=== PATIENT | male | born 1990 | race Asian ===

== ENCOUNTER 2020-08-08 06:08 | Emergency (ER) | payer OTHER ==
[~2020-08-08] VITALS: Ht 182.9 cm; Wt 99.8 kg
[2020-08-08 06:48] LABS: URINE BILIRUBIN NEGATIVE (Negative); URINE BLOOD 3+ (Negative); URINE CLARITY CLEAR; URINE COLOR YELLOW; URINE GLUCOSE-RANDOM TRACE (Negative); URINE KETONES NEGATIVE (Negative); URINE LEUKOCYTES-REFLEX 1+ (Negative); URINE PROTEIN 2+ (Negative); URINE SPECIFIC GRAVITY 1.025 (1.005-1.030)
[2020-08-08 06:50] LABS: URINE NITRITE-REFLEX POSITIVE (Negative)
[2020-08-08] MEDS ORDERED: PYRIDIUM200 MG PO (06:57)
[2020-08-08] MEDS ORDERED: CIPROFLOXACIN500 M1 PO (06:57)
[2020-08-08 07:03] LABS: CASTS None Seen /LPF (None Seen); CRYSTALS None Seen /LPF (None Seen); MUCUS 0-3 Light strn/LPF (None Seen); SQUAMOUS 0-3 Few /LPF (0-3)
[2020-08-08 07:43] VITALS: BP 153/79
== END 2020-08-08 07:45 | disposition home or self-care (01) ==
LOC: M.ERS 06:08
PROVIDERS: Personal Emergency Response Attendant
DX: N39.0 Urinary tract infection, site not specified (principal)